=== PATIENT | female | born 1990 | race Caucasian/White ===

== ENCOUNTER 2017-09-20 17:09 | Emergency (ER) | payer BC ==
[2017-09-20 17:17] VITALS: BP 121/90
[2017-09-20] MEDS ORDERED: Ondansetron 4 MG/2 ML SDV IVPUSH ONE ×2 (17:22→18:18)
[2017-09-20] MEDS: Sodium Chloride 0.9% 10 ML Syringe FLUSH PRN ×2 (17:25→19:50)
--- NOTE | 2017-09-20 17:41 | EDM.PDOC ---
ED HPI GENERAL MEDICAL PROBLEM - General Chief Complaint: Abdominal Pain Stated Complaint: ABDOMINAL PAIN Time Seen by Provider: 09/20/17 17:15 Source of Information: Reports: Patient History Limitations: Reports: No Limitations - History of Present Illness INITIAL COMMENTS - FREE TEXT/NARRATIVE: 27-year-old female presents for evaluation and treatment of epigastric pain, nausea and vomiting. Patient reports that symptoms started today. She has had 3 episodes of vomiting which is producing green bile-like substance. No blood in her emesis. Patient reports that she has episodic severe stabbing pain in the epigastric Region. No radiation into her back. No fevers or diarrhea. No chest pain or shortness of breath. She reports decreased appetite and states that she can't keep anything down. She tried 2 doses of Zofran this morning but did not give any relief. Previous abdominal surgeries including a flap cholecystectomy August 2016. This was complicated with a retained stone in the ducts. She was sent to [facility] for an MRCP on August 25. She subsequently developed gallstone pancreatitis due to this retained stone. She still has her appendix. patient reports a chance of . Onset: Today Location: Reports: Abdomen Middle Abdomen Pain Score (Numeric/FACES): 8 - Related Data Allergies Allergy/AdvReac Type Severity Reaction Status Date / Time No Known Allergies Allergy Verified 09/20/17 17:17 Home Meds: Home Meds . [No Known Home Meds] 09/20/17 [History] Past Medical History - Past Health History Medical/Surgical History: Denies Medical/Surgical History HEENT History: Reports: Other (See Below) Other HEENT History: tonsillectomy - Infectious Disease History Infectious Disease History: Reports: Chicken Pox, Shingles - Past Surgical History HEENT Surgical History: Reports: Tonsillectomy GI Surgical History: Reports: Cholecystectomy Social & Family History - Family History Family Medical History: Noncontributory - Tobacco Use Smoking Status *Q: Never Smoker Second Hand Smoke Exposure: No - Caffeine Use Caffeine Use: Reports: None Other Caffeine Use: rarely - Recreational Drug Use Recreational Drug Use: No ED ROS GENERAL - Review of Systems Review Of Systems: See Below Constitutional: Reports: Chills, Malaise, Decreased Appetite. Denies: Fever Respiratory: Denies: Shortness of Breath Cardiovascular: Denies: Chest Pain GI/Abdominal: Reports: Abdominal Pain (epigastric), Nausea, Vomiting. Denies: Diarrhea, Hematemesis ED EXAM, GI/ABD - Physical Exam Exam: See Below Exam Limited By: No Limitations General Appearance: Alert, WD/WN, Moderate Distress, Thin Ears: Normal External Exam Nose: Normal Inspection Throat/Mouth: Normal Inspection Respiratory/Chest: No Respiratory Distress, Lungs Clear, Normal Breath Sounds Cardiovascular: Normal Peripheral Pulses, Regular Rate, Rhythm, No Murmur GI/Abdominal Exam: Soft, Tender (epigastric), Abnormal Bowel Sounds (hyperactive ), Other (no pain at [place] point). No: Rebound Neurological: Alert, Oriented, Normal Cognition Psychiatric: Normal Affect, Normal Mood Skin Exam: Warm, Dry, Normal Color Course - Vital Signs Last Recorded V/S: Last Vital Signs Temp 36.2 C 09/20/17 17:14 Pulse 113 H 09/20/17 17:14 Resp 19 09/20/17 17:14 BP 121/90 09/20/17 17:14 Pulse Ox 97 09/20/17 17:14 - Orders/Labs/Meds Orders: Active Orders 24 hr Category Date Time Status Peripheral IV Care [RC] . DIRECTED Care 09/20/17 17:22 Active Abdomen 2V AP Flat Upright [CR] Stat Exams 09/20/17 17:32 Ordered Abdomen Pelvis w Cont [CT] Stat Exams 09/20/17 18:36 Ordered Peripheral IV Insertion Adult [OM.PC] Routine Oth 09/20/17 17:22 Ordered Labs: Laboratory Tests 09/20/17 09/20/17 09/20/17 Range/Units 17:20 17:20 17:20 WBC 12.82 H (3.98-10.04) K/mm3 RBC 5.34 H (3.98-5.22) M/mm3 Hgb 15.5 (11.2-15.7) gm/L Hct 46.0 H (34.1-44.9) % MCV 86.1 (79.4-94.8) fl MCH 29.0 (25.6-32.2) pg MCHC 33.7 (32.2-35.5) g/dl RDW Std Deviation 40.7 (36.4-46.3) fL Plt Count 262 (182-369) K/mm3 MPV 12.4 H (9.4-12.3) fl Neutrophils % (Manual) 84 H (40-60) % Band Neutrophils % 1 (0-10) % Lymphocytes % (Manual) 8 L (20-40) % Atypical Lymphs % 0 % Monocytes % (Manual) 6 (2-10) % Eosinophils % (Manual) 1 (0.7-5.8) % Basophils % (Manual) 0 L (0.1-1.2) Platelet Estimate Adequate Plt Morphology Comment Normal Anisocytosis 1+ slight RBC Morph Comment Not Reportable Sodium 139 (136-145) mEq/L Potassium 3.7 (3.5-5.1) mEq/L Chloride 103 (98-107) mEq/L Carbon Dioxide 23 (21-32) mEq/L Anion Gap 16.7 H (5-15) BUN 21 H (7-18) mg/dL Creatinine 0.8 (0.55-1.02) mg/dL Est Cr Clr Drug Dosing 107.50 mL/min Estimated GFR (MDRD) > 60 (>60) mL/min BUN/Creatinine Ratio 26.3 H (14-18) Glucose 112 H (74-106) mg/dL Calcium 9.4 (8.5-10.1) mg/dL Total Bilirubin 1.2 H (0.2-1.0) mg/dL AST 23 (15-37) U/L ALT 28 (14-59) U/L Alkaline Phosphatase 123 H (46-116) U/L C-Reactive Protein 1.4 H* (<1.0) mg/dL Total Protein 8.7 H (6.4-8.2) g/dl Albumin 4.4 (3.4-5.0) g/dl Globulin 4.3 gm/dL Albumin/Globulin Ratio 1.0 (1-2) Lipase 125 (73-393) U/L HCG, Qual Negative (NEGATIVE) Urine Color (Yellow) Urine Appearance (Clear) Urine pH (5.0-8.0) Ur Specific [place] (1.005-1.030) Urine Protein (Negative) Urine Glucose (UA) (Negative) Urine Ketones (Negative) Urine Occult Blood (Negative) Urine Nitrite (Negative) Urine Bilirubin (Negative) Urine Urobilinogen (0.2-1.0) Ur Leukocyte Esterase (Negative) Urine RBC (0-5) /hpf Urine WBC (0-5) /hpf Ur Epithelial Cells (0-5) /hpf Urine Bacteria (FEW) /hpf Urine Mucus (FEW) /hpf 09/20/17 Range/Units 20:05 WBC (3.98-10.04) K/mm3 RBC (3.98-5.22) M/mm3 Hgb (11.2-15.7) gm/L Hct (34.1-44.9) % MCV (79.4-94.8) fl MCH (25.6-32.2) pg MCHC (32.2-35.5) g/dl RDW Std Deviation (36.4-46.3) fL Plt Count (182-369) K/mm3 MPV (9.4-12.3) fl Neutrophils % (Manual) (40-60) % Band Neutrophils % (0-10) % Lymphocytes % (Manual) (20-40) % Atypical Lymphs % % Monocytes % (Manual) (2-10) % Eosinophils % (Manual) (0.7-5.8) % Basophils % (Manual) (0.1-1.2) Platelet Estimate Plt Morphology Comment Anisocytosis RBC Morph Comment Sodium (136-145) mEq/L Potassium (3.5-5.1) mEq/L Chloride (98-107) mEq/L Carbon Dioxide (21-32) mEq/L Anion Gap (5-15) BUN (7-18) mg/dL Creatinine (0.55-1.02) mg/dL Est Cr Clr Drug Dosing mL/min Estimated GFR (MDRD) (>60) mL/min BUN/Creatinine Ratio (14-18) Glucose (74-106) mg/dL Calcium (8.5-10.1) mg/dL Total Bilirubin (0.2-1.0) mg/dL AST (15-37) U/L ALT (14-59) U/L Alkaline Phosphatase (46-116) U/L C-Reactive Protein (<1.0) mg/dL Total Protein (6.4-8.2) g/dl Albumin (3.4-5.0) g/dl Globulin gm/dL Albumin/Globulin Ratio (1-2) Lipase (73-393) U/L HCG, Qual (NEGATIVE) Urine Color Light yellow (Yellow) Urine Appearance Clear (Clear) Urine pH 5.5 (5.0-8.0) Ur Specific [place] 1.015 (1.005-1.030) Urine Protein Negative (Negative) Urine Glucose (UA) Negative (Negative) Urine Ketones 1+ H (Negative) Urine Occult Blood Negative (Negative) Urine Nitrite Negative (Negative) Urine Bilirubin Negative (Negative) Urine Urobilinogen 0.2 (0.2-1.0) Ur Leukocyte Esterase Negative (Negative) Urine RBC Not seen (0-5) /hpf Urine WBC 0-5 (0-5) /hpf Ur Epithelial Cells 10-20 H (0-5) /hpf Urine Bacteria Not seen (FEW) /hpf Urine Mucus Not seen (FEW) /hpf Meds: Medications Discontinued Medications Generic Name Dose Route Start Last Admin Trade Name Freq PRN Reason Stop Dose Admin Diatrizoate Meglum/Diatrizoate Sod 90 ml 09/20/17 19:38 09/20/17 19:50 Gastrografin 37% PO 09/20/17 19:39 90 ml ONETIME ONE Administration Sodium Chloride 1,000 mls @ 999 mls/hr 09/20/17 18:18 09/20/17 18:26 Normal Saline IV 09/20/17 19:18 999 mls/hr ONETIME ONE Administration Iopamidol 125 ml 09/20/17 19:38 09/20/17 19:50 Isovue-300 (61%) IVPUSH 09/20/17 19:39 125 ml ONETIME ONE Administration Ketorolac Tromethamine 30 mg 09/20/17 20:22 09/20/17 20:27 Toradol IVPUSH 09/20/17 20:23 30 mg ONETIME ONE Administration Metoclopramide HCl 5 mg 09/20/17 20:02 09/20/17 20:06 Reglan IVPUSH 09/20/17 20:03 5 mg ONETIME ONE Administration Ondansetron HCl 4 mg 09/20/17 17:22 09/20/17 17:25 Zofran IVPUSH 09/20/17 17:23 4 mg ONETIME ONE Administration Ondansetron HCl 4 mg 09/20/17 18:18 09/20/17 18:22 Zofran IVPUSH 09/20/17 18:19 4 mg ONETIME ONE Administration Sodium Chloride 10 ml 09/20/17 17:22 09/20/17 19:50 Saline Flush FLUSH 10 ml ASDIRECTED PRN Administration Keep Vein Open - Radiology Interpretation Free Text/Narrative:: flat and upright shows no air fluid lines, no free air CT of the abdomen and pelvis with IV and oral contrast impression per Vrad : No acute intra-abdominal process - Re-Assessments/Exams Free Text/Narrative Re-Assessment/Exam: 09/20/17 18:36 I reviewed the labs from the x-ray with the patient. Will obtain a CT of the abdomen and pelvis to rule out something like a diverticulitis and appendicitis. 09/20/17 20:[address] results with the patient. She now feels better after getting the Toradol. I do feel this is likely a viral gastroenteritis. I will discharge her home at this time. She has Zofran at home that she can use. Instructed to return the ER for symptoms change or worsen. Follow-up with family medicine later next week if her symptoms have not improved. Departure - Departure Time of Disposition: 20:51 Disposition: Home, Self-Care 01 Condition: Fair Clinical Impression: Gastroenteritis - Discharge Information Instructions: Viral Gastroenteritis, Adult Referrals: PCP,None [Primary Care Provider] - Sandra Michaud NP [ED Midlevel Provider] - Forms: ED Department Discharge Additional Instructions: Continue with your Zofran as needed for nausea. Recommended starting a probiotic. These are available counter. Clear fluids and a bland diet as tolerated. May advance to a more normal diet as tolerated. expect your symptoms to last 3-5 days. If they persist beyond 5 days follow-up with your primary care provider. Please return to the ER if your symptoms change or worsen. - My Orders Last 24 Hours: My Active Orders 09/20/17 17:22 Peripheral IV Care [RC] . DIRECTED Peripheral IV Insertion Adult [OM.PC] Routine 09/20/17 17:32 Abdomen 2V AP Flat Upright [CR] Stat 09/20/17 18:36 Abdomen Pelvis w Cont [CT] Stat - Assessment/Plan Last 24 Hours: My Active Orders 09/20/17 17:22 Peripheral IV Care [RC] . DIRECTED Peripheral IV Insertion Adult [OM.PC] Routine 09/20/17 17:32 Abdomen 2V AP Flat Upright [CR] Stat 09/20/17 18:36 Abdomen Pelvis w Cont [CT] Stat
[2017-09-20] MEDS ORDERED: Sodium Chloride 0.9% 1,000 ML IV ONE (18:18)
[2017-09-20] MEDS ORDERED: Iopamidol 612 MG/ML 150 ML Bottle IVPUSH ONE (19:38)
[2017-09-20] MEDS ORDERED: Diatrizoate Meglumine/Diatrizoate Sodium 37% 120 ML Bottle PO ONE (19:38)
[2017-09-20] MEDS ORDERED: Metoclopramide 10 MG/2 ML SDV IVPUSH ONE (20:02)
[2017-09-20] MEDS ORDERED: Ketorolac 30 MG/ML SDV IVPUSH ONE (20:22)
--- NOTE | 2017-09-21 15:44 | CR ---
Abdomen: Supine and upright views of the abdomen were obtained. Comparison: Prior abdominal x-ray of 09/05/16. Bowel gas pattern appears normal. Surgical clips are seen from prior cholecystectomy. No abnormal calcifications or soft tissue abnormality is seen. No free air is seen. Impression: 1. No abnormality is seen on two-view abdominal x-ray. Diagnostic code #1
--- NOTE | 2017-09-21 15:44 | CT ---
CT abdomen and pelvis Technique: Multiple axial sections were obtained from above the dome of the diaphragm inferiorly through the pubic symphysis. Intravenous and oral contrast was utilized. Delayed images were also obtained through the bladder. Comparison: No prior CT exam is available of the abdomen and pelvis, previous abdominal x-ray performed earlier from same date is available (6:00 PM). Findings: Visualized lung bases show nothing acute. Liver shows no focal parenchymal abnormality. Spleen appears within normal limits. Adrenal glands show no nodule. Pancreas is within normal limits. Kidneys show symmetric contrast enhancement without hydronephrosis or mass. Surgical clips are seen from prior cholecystectomy. Aorta shows no aneurysmal dilatation. No retroperitoneal adenopathy or mesenteric abnormalities are seen. No pelvic mass or adenopathy is seen. No free fluid or inflammatory change is seen. Appendix felt to be seen and appears normal. No free fluid or inflammatory change is seen. Delayed images show contrast within the distal ureters and within the bladder. Bone window settings were reviewed which appear within normal limits for the patient's age. Impression: 1. Nothing acute is seen on CT study of the abdomen and pelvis. Diagnostic code #1 Agree with preliminary report issued by [employer] ([employer] preliminary report dictated on 09/20/17, 9:18 PM Central Time)
== END 2017-09-20 20:56 | disposition home or self-care (01) ==
LOC: JD.ED 17:09
DX: K52.9 Noninfective gastroenteritis and colitis, unspecified (principal)
CPT/HCPCS: 36415; 74019; 74177; 80053; 81001; 83690; 84703; 85025; 86140; 96361; 96374; 96375; 96376; 99285; J1885; J2405; J2765; J7040; J7050; Q9963; Q9967; 99284

== ENCOUNTER 2018-11-04 03:59 | Inpatient (IN) | payer BC ==
[2018-11-04] MEDS ORDERED: Misoprostol 25 MCG (1/4 of 100 MCG) Tab ONE (19:34)
[2018-11-04] MEDS ORDERED: Ondansetron 4 MG/2 ML SDV IVPUSH PRN (19:47)
[2018-11-04] MEDS ORDERED: Misoprostol 100 MCG Tab VAG PRN (19:47)
[2018-11-04] MEDS ORDERED: Nalbuphine 20 MG/ML 1 ML Syringe IVPUSH PRN (19:47)
[2018-11-04] MEDS ORDERED: Sodium Chloride 0.9% 10 ML Syringe FLUSH PRN (19:47)
--- NOTE | 2018-11-04 19:50 | PCM.LDHP ---
L&D History of Present Illness - General Date of Service: 11/04/18 Admit Problem/Dx: Patient Status Order with Admit Dx/Problem 11/04/18 19:47 Patient Status [ADT] Routine Admission Diagnosis/Problem Admission Diagnosis/Problem Gestational hypertension Source of Information: Patient History Limitations: Reports: No Limitations - History of Present Illness Introduction:: Patient is a 28 y/o at 37 0/7 wks. Last week seen for triage on L&D for complaints of headaches and feeling unwell. Noted to have several mild range BP 's. Given diagnosis of gestational HTN and asked to present for IOL at 37 weeks. Doing well since I last saw her. No complaints of headaches. No vision changes. Has been off of work - Related Data Allergies/Adverse Reactions: Allergies Allergy/AdvReac Type Severity Reaction Status Date / Time No Known Allergies Allergy Verified 11/04/18 23:36 Home Medications: Home Meds Ferrous Sulfate [Iron] 325 mg PO DAILY 10/20/18 [History] Pnv No.122/Iron/Folic Acid [ Multi Tablet] 1 each PO DAILY 10/20/18 [ History] Past Medical History [employer] History: Reports: : 1 Para: 0 - Infectious Disease History Infectious Disease History: Reports: Chicken Pox, Shingles - Past Surgical History HEENT Surgical History: Reports: Oral Surgery (tooth extraction), Tonsillectomy GI Surgical History: Reports: Cholecystectomy Social & Family History - Family History Family Medical History: Noncontributory - Tobacco Use Smoking Status *Q: Never Smoker - Caffeine Use Caffeine Use: Reports: None Other Caffeine Use: rarely - Alcohol Use Alcohol Use History: No - Recreational Drug Use Recreational Drug Use: No H&P Review of Systems - Review of Systems: Review Of Systems: See Below General: Reports: No Symptoms Pulmonary: Reports: No Symptoms Cardiovascular: Reports: No Symptoms Gastrointestinal: Reports: No Symptoms Genitourinary: Reports: No Symptoms Musculoskeletal: Reports: No Symptoms Psychiatric: Reports: No Symptoms Neurological: Reports: No Symptoms L&D Exam - Exam Exam: See Below - OB Specific Contraction Intensity: Irritability Movement: Active Heart Tones: Present Heart Tones per Min: 130 Heart Rate (FHR) Variability: Moderate (6-25 bmp) Presentation: Vertex - Zhu Score Zhu Score Cervix Position: Posterior Zhu Score Consistency: Medium Zhu Score Effacement: 31-50% Zhu Score Dilation: 1-2 cm Zhu Score 's Station: -2 Zhu Score Total: 4 - Exam General: Alert, Oriented, Cooperative Lungs: Clear to Auscultation, Normal Respiratory Effort Cardiovascular: Regular Rate, Regular Rhythm GI/Abdominal Exam: Soft, Non-Tender Genitourinary: Normal external exam Extremities: Normal Inspection Skin: Warm, Dry, Intact - Patient Data Result Diagrams: 11/04/18 20:00 11/04/18 20:00 - Problem List (1) 37 weeks gestation of SNOMED Code(s): 52011657 ICD Code: Z3A.37 - 37 WEEKS GESTATION OF Status: Acute Current Visit: Yes (2) Gestational hypertension SNOMED Code(s): 641711128 ICD Code: O13.9 - GESTATIONAL HTN W/O SIGNIFICANT PROTEINURIA, UNSP TRIMESTER Status: Acute Current Visit: Yes Qualifiers: Trimester: third trimester Qualified Code(s): O13.3 - Gestational [ -induced] hypertension without significant proteinuria, third trimester (3) GBS (group B Streptococcus carrier), +RV culture, currently SNOMED Code(s): 5707260762173, 632444766, 6098428805358 ICD Code: O99.820 - STREPTOCOCCUS B CARRIER STATE COMPLICATING Status: Acute Current Visit: Yes Problem List Initiated/Reviewed/Updated: Yes Orders Last 24hrs: Active Orders 24 hr Category Date Time Status Patient Status [ADT] Routine ADT 11/04/18 19:47 Ordered Communication Order [RC] ASDIRECTED Care 11/04/18 19:47 Ordered Communication Order [RC] ASDIRECTED Care 11/04/18 19:47 Ordered Communication Order [RC] ASDIRECTED Care 11/04/18 19:47 Ordered Heart Tones [RC] ASDIRECTED Care 11/04/18 19:47 Ordered Monitoring [RC] INTERMITTENT Care 11/04/18 19:47 Ordered Non Stress Test [RC] PER UNIT ROUTINE Care 11/04/18 19:47 Ordered Notify Provider [RC] ASDIRECTED Care 11/04/18 19:47 Ordered Notify Provider [RC] PRN Care 11/04/18 19:47 Ordered Peripheral IV Care [RC] . DIRECTED Care 11/04/18 19:47 Ordered Up ad Clair [RC] ASDIRECTED Care 11/04/18 19:47 Ordered Vaginal Exam [RC] ASDIRECTED Care 11/04/18 19:47 Ordered Vital Signs [RC] ASDIRECTED Care 11/04/18 19:47 Ordered Regular Diet [DIET] Diet 11/04/18 Dinner Ordered ALANINE AMINOTRANSFERASE,ALT [CHEM] Routine Lab 11/04/18 19:47 Ordered ASPARTATE AMNIOTRANSFERASE,AST [CHEM] Routine Lab 11/04/18 19:47 Ordered CBC W/O DIFF,HEMOGRAM [HEME] Routine Lab 11/04/18 19:47 Ordered CREATININE W/GFR [CHEM] Routine Lab 11/04/18 19:47 Ordered RAPID PLASMA REAGIN,RPR [CHEM] Routine Lab 11/04/18 19:47 Ordered TYPE AND SCREEN [BBK] Routine Lab 11/04/18 19:47 Ordered Lactated Ringers [Ringers, Lactated] 1,000 ml Med 11/04/18 20:00 Ordered IV ASDIRECTED Nalbuphine [Nubain] Med 11/04/18 19:47 Ordered 10 mg IVPUSH Q2H PRN Ondansetron [Zofran] Med 11/04/18 19:47 Ordered 4 mg IVPUSH Q4H PRN Oxytocin/Lactated Ringers [Pitocin in LR 10 Units/1,000 Med 11/04/18 20:00 Ordered ML] 10 unit in 1,000 ml IV .CONTINUOUS Oxytocin/Lactated Ringers [Pitocin in LR 10 Units/1,000 Med 11/04/18 20:00 Ordered ML] 10 unit in 1,000 ml IV TITRATE Penicillin G Potassium [Pfizerpen] 2.5 millunits Med 11/04/18 20:00 Ordered Sodium Chloride 0.9% [Normal Saline] 100 ml IV Q4H Penicillin G Potassium [Pfizerpen] 5 millunits Med 11/04/18 20:00 Ordered Sodium Chloride 0.9% [Normal Saline] 100 ml IV ONETIME Sodium Chloride 0.9% [Saline Flush] Med 11/04/18 19:47 Ordered 10 ml FLUSH ASDIRECTED PRN miSOPROStol [Cytotec] Med 11/04/18 19:47 Ordered 25 mcg VAG Q4H PRN Electronic Heart Tones Ext w TOCO [WOMSER] Oth 11/04/18 19:47 Ordered Routine Electronic Heart Tones Internal [WOMSER] Per Unit Oth 11/04/18 19:47 Ordered Routine Peripheral IV Insertion Adult [OM.PC] Routine Oth 11/04/18 19:47 Ordered Resuscitation Status Routine Resus Stat 11/04/18 19:47 Ordered Assessment/Plan Comment:: 28 y/o at 37 1/7 wks presents for IOL for previously established diagnosis of gestational HTN * Labs including preeclampsia panel * Cytotec and galindo bulb to start IOL. Will adjust to Pitocin and AROM when able * GBS positive, will start PCN when more active * Pain management per patient preference * Anticipate
[2018-11-04] MEDS ORDERED: Penicillin G Potassium 5 MILLUNITS in Sodium Chloride 0.9% 100 ML IV SCH (20:00)
[2018-11-04] MEDS ORDERED: Oxytocin/Lactated Ringers 10 UNIT/1,000 ML BAG IV SCH ×2 (20:00)
[2018-11-04] MEDS ORDERED: Misoprostol 25 MCG (1/4 of 100 MCG) Tab PO PRN (21:00)
[2018-11-05] MEDS ORDERED: Penicillin G Potassium 2.5 MILLUNITS in Sodium Chloride 0.9% 100 ML IV SCH ×2
[2018-11-05] MEDS: Lactated Ringers 1,000 ML IV SCH ×6 (01:22→16:26)
[2018-11-05] MEDS ORDERED: fentaNYL 100 MCG/2 ML SDV ONE (01:29)
[2018-11-05] MEDS ORDERED: ePHEDrine 50 MG/ML SDV IVPUSH PRN (01:44)
[2018-11-05] MEDS ORDERED: diphenhydrAMINE 50 MG/ML SDV IVPUSH PRN (01:44)
[2018-11-05] MEDS: fentaNYL 100 MCG/2 ML SDV EPIDUR PRN ×2 (02:11→21:59)
[2018-11-05] MEDS: fentaNYL/Bupivacaine-NS 2 MCG/ML-0.125%/PF 100 ML Bag EPIDUR PRN ×2 (02:11→18:32)
--- NOTE | 2018-11-05 02:19 | PCM.PREANE ---
Preanesthetic Assessment - Anesthesia/Transfusion/Family Hx Anesthesia History: Prior Anesthesia Without Reaction Family History of Anesthesia Reaction: No Transfusion History: No Prior Transfusion(s) Type of Transfusion Reactions: Reports: Unknown - Review of Systems General: Fatigue Pulmonary: No Symptoms Cardiovascular: No Symptoms Gastrointestinal: Abdominal Pain (labor) Neurological: No Symptoms Other: Reports: None - Physical Assessment Pulse: 108 O2 Sat by Pulse Oximetry: 100 Respiratory Rate: 16 Blood Pressure: 132/81 Temperature: 36.4 C Vital Signs: Last Vital Signs Temp 36.4 C 11/04/18 19:47 Pulse 108 H 11/04/18 19:47 Resp 16 11/04/18 19:47 BP 132/81 11/04/18 19:47 Pulse Ox 100 11/04/18 19:47 Height: 1.7 m Weight: 95.617 kg ASA Class: 2 Mental Status: Alert & Oriented x3 Airway Class: Mallampati = 1 Dentition: Reports: Normal Dentition Thyro-Mental Finger Breadths: 3 Mouth Opening Finger Breadths: 3 ROM/Head Extension: Full Lungs: Clear to Auscultation, Normal Respiratory Effort Cardiovascular: Regular Rate, Regular Rhythm - Lab Values: Laboratory Last Values WBC 12.25 K/mm3 (3.98-10.04) H 11/04/18 20:00 RBC 3.74 M/mm3 (3.98-5.22) L 11/04/18 20:00 Hgb 11.1 gm/L (11.2-15.7) L 11/04/18 20:00 Hct 32.6 % (34.1-44.9) L 11/04/18 20:00 MCV 87.2 fl (79.4-94.8) 11/04/18 20:00 MCH 29.7 pg (25.6-32.2) 11/04/18 20:00 MCHC 34.0 g/dl (32.2-35.5) 11/04/18 20:00 RDW Std Deviation 40.0 fL (36.4-46.3) 11/04/18 20:00 Plt Count 175 K/mm3 (182-369) L 11/04/18 20:00 MPV 12.1 fl (9.4-12.3) 11/04/18 20:00 Creatinine 0.8 mg/dL (0.55-1.02) 11/04/18 20:00 Est Cr Clr Drug Dosing TNP 11/04/18 20:00 Estimated GFR (MDRD) > 60 mL/min (>60) 11/04/18 20:00 AST 18 U/L (15-37) 11/04/18 20:00 ALT 18 U/L (14-59) 11/04/18 20:00 Ur Random Creatinine 121.4 mg/dL (30.0-125.0) 11/04/18 20:05 U Random Total Protein 16.5 mg/dL (0.0-11.8) H 11/04/18 20:05 Protein/Creatinin Ratio 135.9 mg/g (0-149) 11/04/18 20:05 RPR Non-reactive (NONREACTIVE) 11/04/18 20:00 Blood Type A POSITIVE 11/04/18 20:00 - Allergies Allergies/Adverse Reactions: Allergies Allergy/AdvReac Type Severity Reaction Status Date / Time No Known Allergies Allergy Verified 11/04/18 23:36 - Anesthesia Plan Pre-Op Medication Ordered: None - Acknowledgements Anesthesia Type Planned: Epidural Pt an Appropriate Candidate for the Planned Anesthesia: Yes Alternatives and Risks of Anesthesia Discussed w Pt/Guardian: Yes Pt/Guardian Understands and Agrees with Anesthesia Plan: Yes PreAnesthesia Questionnaire - Past Health History Medical/Surgical History: Denies Medical/Surgical History HEENT History: Reports: Other (See Below) Other HEENT History: tonsillectomy 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: - Infectious Disease History Infectious Disease History: Reports: Chicken Pox, Shingles - Past Surgical History HEENT Surgical History: Reports: Tonsillectomy GI Surgical History: Reports: Cholecystectomy - SUBSTANCE USE Smoking Status *Q: Never Smoker Tobacco Use Within Last Twelve Months: No Second Hand Smoke Exposure: No Days Per Week of Alcohol Use: 0 Number of Drinks Per Day: 0 Total Drinks Per Week: 0 Recreational Drug Use History: No - HOME MEDS Home Medications: Home Meds Ferrous Sulfate [Iron] 325 mg PO DAILY 10/20/18 [History] Pnv No.122/Iron/Folic Acid [ Multi Tablet] 1 each PO DAILY 10/20/18 [ History] - CURRENT (IN HOUSE) MEDS Current Meds: Current Medications Diphenhydramine HCl (Benadryl) 25 mg IVPUSH Q6H PRN PRN Reason: Itching Ephedrine Sulfate (Ephedrine Sulfate) 5 mg IVPUSH ASDIRECTED PRN PRN Reason: HYPOTENTSION Fentanyl (Sublimaze) 100 mcg EPIDUR Q3H PRN PRN Reason: Pain Last Admin: 11/05/18 02:11 Dose: 100 mcg Fentanyl/Bupivacaine HCl (Thgfmbil-Fdkex-Hy 2 Mcg/Ml-0.125%) 100 ml EPIDUR ASDIRECTED PRN PRN Reason: Pain Last Admin: 11/05/18 02:11 Dose: 100 ml Lactated Ringer's (Ringers, Lactated) 1,000 mls @ 40 mls/hr IV ASDIRECTED MIHIR Last Admin: 11/05/18 01:52 Dose: 999 mls/hr Oxytocin/Lactated Ringer's (Pitocin In Lr 10 Units/1,000 Ml) 10 unit in 1,000 mls @ 12 mls/hr IV TITRATE MIHIR; Protocol Oxytocin/Lactated Ringer's (Pitocin In Lr 10 Units/1,000 Ml) 10 unit in 1,000 mls @ 500 mls/hr IV .CONTINUOUS MIHIR Penicillin G Potassium 5 (millunits/ Sodium Chloride) 100 mls @ 55 mls/hr IV ONETIME MIHIR Penicillin G Potassium 2.5 (millunits/ Sodium Chloride) 100 mls @ 55 mls/hr IV Q4H MIHIR Nalbuphine HCl (Nubain) 10 mg IVPUSH Q2H PRN PRN Reason: pain Ondansetron HCl (Zofran) 4 mg IVPUSH Q4H PRN PRN Reason: Nausea/Vomiting Sodium Chloride (Saline Flush) 10 ml FLUSH ASDIRECTED PRN PRN Reason: Keep Vein Open Discontinued Medications Fentanyl (Sublimaze) Confirm Administered Dose 100 mcg .ROUTE .STK-MED ONE Stop: 11/05/18 01:30 Misoprostol (Cytotec) Confirm Administered Dose 25 mcg .ROUTE .STK-MED ONE Stop: 11/04/18 19:35 Last Admin: 11/04/18 19:40 Dose: 25 mcg Misoprostol (Cytotec) 25 mcg VAG Q4H PRN PRN Reason: cervical ripening Misoprostol (Cytotec) 25 mcg PO Q4H PRN PRN Reason: CERVICAL RIPENING
[2018-11-05] MEDS ORDERED: Penicillin G Potassium 5 MILLUNITS in Sodium Chloride 0.9% 100 ML IV ONE (02:30)
[2018-11-05] MEDS: Penicillin G Potassium 2.5 MILLUNITS in Sodium Chloride 0.9% 100 ML IV SCH ×5 (06:30→23:31)
--- NOTE | 2018-11-05 07:04 | PCM.PNLD ---
Labor Progress Note - VS & Meds Vital Signs: Last Vital Signs Temp 36.4 C 11/05/18 02:19 Pulse 108 H 11/05/18 02:19 Resp 16 11/05/18 02:19 BP 132/81 11/05/18 02:19 Pulse Ox 100 11/05/18 02:19 Active Medications: Current Medications Diphenhydramine HCl (Benadryl) 25 mg IVPUSH Q6H PRN PRN Reason: Itching Ephedrine Sulfate (Ephedrine Sulfate) 5 mg IVPUSH ASDIRECTED PRN PRN Reason: HYPOTENTSION Fentanyl (Sublimaze) 100 mcg EPIDUR Q3H PRN PRN Reason: Pain Last Admin: 11/05/18 02:11 Dose: 100 mcg Fentanyl/Bupivacaine HCl (Wmlbmzlj-Kreal-Et 2 Mcg/Ml-0.125%) 100 ml EPIDUR ASDIRECTED PRN PRN Reason: Pain Last Admin: 11/05/18 02:11 Dose: 100 ml Lactated Ringer's (Ringers, Lactated) 1,000 mls @ 40 mls/hr IV ASDIRECTED MIHIR Last Admin: 11/05/18 04:29 Dose: 125 mls/hr Oxytocin/Lactated Ringer's (Pitocin In Lr 10 Units/1,000 Ml) 10 unit in 1,000 mls @ 12 mls/hr IV TITRATE MIHIR; Protocol Last Titration: 11/05/18 06:35 Dose: 10 munits/min, 60 mls/hr Oxytocin/Lactated Ringer's (Pitocin In Lr 10 Units/1,000 Ml) 10 unit in 1,000 mls @ 500 mls/hr IV .CONTINUOUS MIHIR Penicillin G Potassium 2.5 (millunits/ Sodium Chloride) 100 mls @ 55 mls/hr IV Q4H MIHIR Last Admin: 11/05/18 06:30 Dose: 55 mls/hr Nalbuphine HCl (Nubain) 10 mg IVPUSH Q2H PRN PRN Reason: pain Ondansetron HCl (Zofran) 4 mg IVPUSH Q4H PRN PRN Reason: Nausea/Vomiting Sodium Chloride (Saline Flush) 10 ml FLUSH ASDIRECTED PRN PRN Reason: Keep Vein Open Discontinued Medications Fentanyl (Sublimaze) Confirm Administered Dose 100 mcg .ROUTE .STK-MED ONE Stop: 11/05/18 01:30 Last Admin: 11/05/18 03:34 Dose: Not Given Penicillin G Potassium 5 (millunits/ Sodium Chloride) 100 mls @ 55 mls/hr IV ONETIME ONE Stop: 11/05/18 04:19 Last Admin: 11/05/18 02:38 Dose: 55 mls/hr Misoprostol (Cytotec) Confirm Administered Dose 25 mcg .ROUTE .STK-MED ONE Stop: 11/04/18 19:35 Last Admin: 11/04/18 19:40 Dose: 25 mcg Misoprostol (Cytotec) 25 mcg VAG Q4H PRN PRN Reason: cervical ripening Misoprostol (Cytotec) 25 mcg PO Q4H PRN PRN Reason: CERVICAL RIPENING - Uterine Contractions Uterine Monitoring Mode: External [place] Contraction Intensity: Irritability - Monitoring Monitor Mode: External Ultrasound Heart Rate (FHR) Baseline: 140 Heart Rate (FHR) Variability: Moderate (6-25 bmp) Accelerations: Present, 15x15 Decelerations: Variable Strip Review: Category I - Vaginal Exam Dilation (cm): 3 Effacement (Percent): 75 Station: -2 Cervical Position: Midposition - Labor Progress (Free Text) Labor Progress: Patient only received 1st dose of cytotec at 1930 and then with strong contractions. Cytotec out at 0045. Received epidural around this time. Pitocin then started around 0330 along with PCN. Still with some difficulty achieving adequate contraction pattern. Would prefer to not AROM yet, however, can do this if difficulty in having normal contraction pattern and titrating pitocin
--- NOTE | 2018-11-05 12:13 | PCM.PNLD ---
Labor Progress Note - VS & Meds Vital Signs: Last Vital Signs Temp 36.4 C 11/05/18 02:19 Pulse 108 H 11/05/18 02:19 Resp 16 11/05/18 02:19 BP 132/81 11/05/18 02:19 Pulse Ox 100 11/05/18 02:19 Active Medications: Current Medications Diphenhydramine HCl (Benadryl) 25 mg IVPUSH Q6H PRN PRN Reason: Itching Ephedrine Sulfate (Ephedrine Sulfate) 5 mg IVPUSH ASDIRECTED PRN PRN Reason: HYPOTENTSION Fentanyl (Sublimaze) 100 mcg EPIDUR Q3H PRN PRN Reason: Pain Last Admin: 11/05/18 02:11 Dose: 100 mcg Fentanyl/Bupivacaine HCl (Arwstano-Pkdmu-Tr 2 Mcg/Ml-0.125%) 100 ml EPIDUR ASDIRECTED PRN PRN Reason: Pain Last Admin: 11/05/18 02:11 Dose: 100 ml Lactated Ringer's (Ringers, Lactated) 1,000 mls @ 40 mls/hr IV ASDIRECTED MIHIR Last Admin: 11/05/18 08:24 Dose: 125 mls/hr Oxytocin/Lactated Ringer's (Pitocin In Lr 10 Units/1,000 Ml) 10 unit in 1,000 mls @ 12 mls/hr IV TITRATE MIHIR; Protocol Last Titration: 11/05/18 11:15 Dose: 6 munits/min, 36 mls/hr Oxytocin/Lactated Ringer's (Pitocin In Lr 10 Units/1,000 Ml) 10 unit in 1,000 mls @ 500 mls/hr IV .CONTINUOUS MIHIR Penicillin G Potassium 2.5 (millunits/ Sodium Chloride) 100 mls @ 55 mls/hr IV Q4H MIHIR Last Admin: 11/05/18 10:33 Dose: 55 mls/hr Nalbuphine HCl (Nubain) 10 mg IVPUSH Q2H PRN PRN Reason: pain Ondansetron HCl (Zofran) 4 mg IVPUSH Q4H PRN PRN Reason: Nausea/Vomiting Sodium Chloride (Saline Flush) 10 ml FLUSH ASDIRECTED PRN PRN Reason: Keep Vein Open Discontinued Medications Fentanyl (Sublimaze) Confirm Administered Dose 100 mcg .ROUTE .STK-MED ONE Stop: 11/05/18 01:30 Last Admin: 11/05/18 03:34 Dose: Not Given Penicillin G Potassium 5 (millunits/ Sodium Chloride) 100 mls @ 55 mls/hr IV ONETIME ONE Stop: 11/05/18 04:19 Last Admin: 11/05/18 02:38 Dose: 55 mls/hr Misoprostol (Cytotec) Confirm Administered Dose 25 mcg .ROUTE .STK-MED ONE Stop: 11/04/18 19:35 Last Admin: 11/04/18 19:40 Dose: 25 mcg Misoprostol (Cytotec) 25 mcg VAG Q4H PRN PRN Reason: cervical ripening Misoprostol (Cytotec) 25 mcg PO Q4H PRN PRN Reason: CERVICAL RIPENING - Uterine Contractions Uterine Monitoring Mode: IUPC Contraction Intensity: Strong - Monitoring Monitor Mode: External Ultrasound Heart Rate (FHR) Baseline: 135 Heart Rate (FHR) Variability: Moderate (6-25 bmp) Accelerations: Present, 15x15 Decelerations: Variable Strip Review: Category II - Vaginal Exam Dilation (cm): 3 Effacement (Percent): 80 Station: -1 Cervical Position: Anterior - Labor Progress (Free Text) Labor Progress: Patient with an adequate contraction pattern on 6 of pitocin. SVE shows good effacement since last exam. Dilation about the same. Will continue present management. Reassess in a few hours
--- NOTE | 2018-11-05 16:32 | PCM.PNLD ---
Labor Progress Note - VS & Meds Vital Signs: Last Vital Signs Temp 36.4 C 11/05/18 02:19 Pulse 108 H 11/05/18 02:19 Resp 16 11/05/18 02:19 BP 132/81 11/05/18 02:19 Pulse Ox 100 11/05/18 02:19 Active Medications: Current Medications Diphenhydramine HCl (Benadryl) 25 mg IVPUSH Q6H PRN PRN Reason: Itching Ephedrine Sulfate (Ephedrine Sulfate) 5 mg IVPUSH ASDIRECTED PRN PRN Reason: HYPOTENTSION Fentanyl (Sublimaze) 100 mcg EPIDUR Q3H PRN PRN Reason: Pain Last Admin: 11/05/18 02:11 Dose: 100 mcg Fentanyl/Bupivacaine HCl (Hvmngpsh-Bzezu-Gk 2 Mcg/Ml-0.125%) 100 ml EPIDUR ASDIRECTED PRN PRN Reason: Pain Last Admin: 11/05/18 02:11 Dose: 100 ml Lactated Ringer's (Ringers, Lactated) 1,000 mls @ 40 mls/hr IV ASDIRECTED MIHIR Last Admin: 11/05/18 16:26 Dose: 125 mls/hr Oxytocin/Lactated Ringer's (Pitocin In Lr 10 Units/1,000 Ml) 10 unit in 1,000 mls @ 12 mls/hr IV TITRATE MIHIR; Protocol Last Titration: 11/05/18 11:15 Dose: 6 munits/min, 36 mls/hr Oxytocin/Lactated Ringer's (Pitocin In Lr 10 Units/1,000 Ml) 10 unit in 1,000 mls @ 500 mls/hr IV .CONTINUOUS MIHIR Penicillin G Potassium 2.5 (millunits/ Sodium Chloride) 100 mls @ 55 mls/hr IV Q4H MIHIR Last Admin: 11/05/18 15:30 Dose: 55 mls/hr Nalbuphine HCl (Nubain) 10 mg IVPUSH Q2H PRN PRN Reason: pain Ondansetron HCl (Zofran) 4 mg IVPUSH Q4H PRN PRN Reason: Nausea/Vomiting Last Admin: 11/05/18 13:33 Dose: 4 mg Sodium Chloride (Saline Flush) 10 ml FLUSH ASDIRECTED PRN PRN Reason: Keep Vein Open Discontinued Medications Fentanyl (Sublimaze) Confirm Administered Dose 100 mcg .ROUTE .STK-MED ONE Stop: 11/05/18 01:30 Last Admin: 11/05/18 03:34 Dose: Not Given Penicillin G Potassium 5 (millunits/ Sodium Chloride) 100 mls @ 55 mls/hr IV ONETIME ONE Stop: 11/05/18 04:19 Last Admin: 11/05/18 02:38 Dose: 55 mls/hr Misoprostol (Cytotec) Confirm Administered Dose 25 mcg .ROUTE .STK-MED ONE Stop: 11/04/18 19:35 Last Admin: 11/04/18 19:40 Dose: 25 mcg Misoprostol (Cytotec) 25 mcg VAG Q4H PRN PRN Reason: cervical ripening Misoprostol (Cytotec) 25 mcg PO Q4H PRN PRN Reason: CERVICAL RIPENING - Uterine Contractions Uterine Monitoring Mode: IUPC Contraction Intensity: Strong - Monitoring Monitor Mode: External Ultrasound Heart Rate (FHR) Baseline: 135 Heart Rate (FHR) Variability: Moderate (6-25 bmp) Accelerations: Present, 15x15 Decelerations: None Strip Review: Category I - Labor Progress (Free Text) Labor Progress: Patient resting comfortably with epidural. Pitocin at 6. MVU's adequate. Last checked by myself at about 1215. Nursing exam around 1500 showed maybe slightly more dilation, 3-4 as compared to 3 cm. Reviewed prefer not to check right now. Will come back in a few hours and reassess then. Did discuss that can not call failure to progress at this time as has only been ruptured for about 7 hours. Initial stage of labor can be unpredictable. As long as and maternal status reassuring will continue present management. She agrees. Patsy Donaldson MD
--- NOTE | 2018-11-05 19:08 | PCM.PNLD ---
Labor Progress Note - VS & Meds Vital Signs: Last Vital Signs Temp 36.4 C 11/05/18 02:19 Pulse 108 H 11/05/18 02:19 Resp 16 11/05/18 02:19 BP 132/81 11/05/18 02:19 Pulse Ox 100 11/05/18 02:19 Active Medications: Current Medications Diphenhydramine HCl (Benadryl) 25 mg IVPUSH Q6H PRN PRN Reason: Itching Ephedrine Sulfate (Ephedrine Sulfate) 5 mg IVPUSH ASDIRECTED PRN PRN Reason: HYPOTENTSION Fentanyl (Sublimaze) 100 mcg EPIDUR Q3H PRN PRN Reason: Pain Last Admin: 11/05/18 02:11 Dose: 100 mcg Fentanyl/Bupivacaine HCl (Leoyteww-Vkfcs-Kj 2 Mcg/Ml-0.125%) 100 ml EPIDUR ASDIRECTED PRN PRN Reason: Pain Last Admin: 11/05/18 18:32 Dose: 100 ml Lactated Ringer's (Ringers, Lactated) 1,000 mls @ 40 mls/hr IV ASDIRECTED MIHIR Last Admin: 11/05/18 16:26 Dose: 125 mls/hr Oxytocin/Lactated Ringer's (Pitocin In Lr 10 Units/1,000 Ml) 10 unit in 1,000 mls @ 12 mls/hr IV TITRATE MIHIR; Protocol Last Titration: 11/05/18 11:15 Dose: 6 munits/min, 36 mls/hr Oxytocin/Lactated Ringer's (Pitocin In Lr 10 Units/1,000 Ml) 10 unit in 1,000 mls @ 500 mls/hr IV .CONTINUOUS MIHIR Penicillin G Potassium 2.5 (millunits/ Sodium Chloride) 100 mls @ 55 mls/hr IV Q4H MIHIR Last Admin: 11/05/18 15:30 Dose: 55 mls/hr Nalbuphine HCl (Nubain) 10 mg IVPUSH Q2H PRN PRN Reason: pain Ondansetron HCl (Zofran) 4 mg IVPUSH Q4H PRN PRN Reason: Nausea/Vomiting Last Admin: 11/05/18 13:33 Dose: 4 mg Sodium Chloride (Saline Flush) 10 ml FLUSH ASDIRECTED PRN PRN Reason: Keep Vein Open Discontinued Medications Fentanyl (Sublimaze) Confirm Administered Dose 100 mcg .ROUTE .STK-MED ONE Stop: 11/05/18 01:30 Last Admin: 11/05/18 03:34 Dose: Not Given Penicillin G Potassium 5 (millunits/ Sodium Chloride) 100 mls @ 55 mls/hr IV ONETIME ONE Stop: 11/05/18 04:19 Last Admin: 11/05/18 02:38 Dose: 55 mls/hr Misoprostol (Cytotec) Confirm Administered Dose 25 mcg .ROUTE .STK-MED ONE Stop: 11/04/18 19:35 Last Admin: 11/04/18 19:40 Dose: 25 mcg Misoprostol (Cytotec) 25 mcg VAG Q4H PRN PRN Reason: cervical ripening Misoprostol (Cytotec) 25 mcg PO Q4H PRN PRN Reason: CERVICAL RIPENING - Uterine Contractions Uterine Monitoring Mode: IUPC Contraction Intensity: Strong - Monitoring Monitor Mode: External Ultrasound Heart Rate (FHR) Baseline: 150 Heart Rate (FHR) Variability: Moderate (6-25 bmp) Accelerations: Present, 15x15 Decelerations: Variable - Vaginal Exam Dilation (cm): 4-5 Effacement (Percent): 90 Station: -1 Cervical Position: Anterior - Labor Progress (Free Text) Labor Progress: Doing well. Comfortable. IUPC shows adequate contractions. Has made good change in both effacement and dilation since my last check. Will continue present management
[2018-11-05] MEDS ORDERED: Bupivacaine 0.25% 10 ML SDV ONE (22:00)
[2018-11-06] MEDS: Lactated Ringers 1,000 ML IV SCH ×2 (00:09→05:22)
[2018-11-06] MEDS: fentaNYL/Bupivacaine-NS 2 MCG/ML-0.125%/PF 100 ML Bag EPIDUR PRN (00:53)
--- NOTE | 2018-11-06 04:28 | PCM.DEL ---
L & D Note - General Info Date of Service: 11/06/18 - Delivery Note Labor: Induced by ARM, Induced by Oxytocin Cervical Ripening Method: Balloon Device, Misoprostil Delivery Outcome: Livebirth Infant Delivery Method: Spontaneous Vaginal Delivery-Single Delivery Mode: Spontaneous Presentation: Left Occiput Anterior (HALEY) Nuchal Cord: None Anesthesia Type: Epidural Amniotic Fluid Description: Clear Episiotomy Type: None Laceration: 2nd Degree, Perineal Suture type: Vicryl Suture size: 2-0 Placenta: Intact, Spontaneous Cord: 3 Vessels Estimated Blood Loss: 200 [place]: Suctioned, Bulb Syringe, Stimulated, Warmed, [place] Used, Warmer Used Delivery Comments (Free Text/Narrative):: Patient found to be complete and began pushing. With maternal pushing effort head delivered from an HALEY presentation. With gentle downward traction the shoulders did not immediately deliver. Patient put in deeper Winifred and after about 20 more seconds the anterior and posterior shoulders did deliver. Cord clamped and cut. Baby taken to warmer for assessment. Cord segment obtained for cord gas. Cord blood obtained. Placenta allowed time to separate and expelled intact. Inspection of the perineum showed a 2nd degree laceration repaired with a 2-0 Vicryl in the typical fashion. AB.19 VB.33 - General Info Date of Service: 11/06/18 - Patient Data Vitals - Most Recent: Last Vital Signs Temp 36.4 C 11/05/18 02:19 Pulse 108 H 11/05/18 02:19 Resp 16 11/05/18 02:19 BP 132/81 11/05/18 02:19 Pulse Ox 100 11/05/18 02:19 Weight - Most Recent: 95.617 kg I&O - Last 24 Hours: - Problem List & Annotations (1) 37 weeks gestation of SNOMED Code(s): 99541968 Code(s): Z3A.37 - 37 WEEKS GESTATION OF Status: Acute Current Visit: Yes (2) Gestational hypertension SNOMED Code(s): 266264421 Code(s): O13.9 - GESTATIONAL HTN W/O SIGNIFICANT PROTEINURIA, UNSP TRIMESTER Status: Acute Current Visit: Yes Qualifiers: Trimester: third trimester Qualified Code(s): O13.3 - Gestational [ -induced] hypertension without significant proteinuria, third trimester (3) GBS (group B Streptococcus carrier), +RV culture, currently SNOMED Code(s): 8617071656785, 431715107, 9485195358137 Code(s): O99.820 - STREPTOCOCCUS B CARRIER STATE COMPLICATING Status: Acute Current Visit: Yes - Problem List Review Problem List Initiated/Reviewed/Updated: Yes - My Orders Last 24 Hours: My Active Orders 11/05/18 06:30 Penicillin G Potassium [Pfizerpen] 2.5 millunits Sodium Chloride 0.9% [Normal Saline] 100 ml IV Q4H 11/06/18 04:26 Patient Status Manage Transfer [TRANSFER] Routine - Assessment Assessment:: 28 y/o G1 now P1001 PPD#0 from at 37 2/7 wks - Plan Plan:: : * Routine cares * Encourage breast feeding * Monitor BP's closely * Discharge home in 1-2 days
[2018-11-06] MEDS ORDERED: Lanolin 100% Cream 7 GM Tube TOP PRN (04:35)
[2018-11-06] MEDS ORDERED: Acetaminophen 325 MG Tab PO PRN (04:35)
[2018-11-06] MEDS ORDERED: Witch Hazel Medicated Pads 40/Jar TOP PRN (04:35)
[2018-11-06] MEDS ORDERED: Benzocaine/Menthol 20%-0.5% Spray 56 GM Canister TOP PRN (04:35)
[2018-11-06] MEDS ORDERED: Docusate Sodium 100 MG Cap PO PRN (04:35)
[2018-11-06] MEDS: Ibuprofen 600 MG Tab PO PRN ×3 (04:37→21:17)
[2018-11-06] MEDS: Penicillin G Potassium 2.5 MILLUNITS in Sodium Chloride 0.9% 100 ML IV SCH (05:28)
--- NOTE | 2018-11-06 10:41 | PCM48HPAN ---
Post Anesthesia Note - EVALUATION WITHIN 48HRS OF ANESTHETIC Vital Signs in Normal Range: Yes Patient Participated in Evaluation: Yes Respiratory Function Stable: Yes Airway Patent: Yes Cardiovascular Function Stable: Yes Hydration Status Stable: Yes Pain Control Satisfactory: Yes Nausea and Vomiting Control Satisfactory: Yes Mental Status Recovered: Yes - COMMENTS/OBSERVATIONS Free Text/Narrative:: Patient states pain returned, warranted a rebolus, and then epidural worked well. Upon pushing, pain returned, patient educated that this is a normal experience at times to provide better ability to push more effectively.
[2018-11-07 03:18] VITALS: BP 112/68
[2018-11-07] MEDS: Ibuprofen 600 MG Tab PO PRN ×2 (03:19→10:57)
--- NOTE | 2018-11-07 07:17 | PCM.DCSUM1 ---
Discharge Summary - Discharge Data Discharge Date: 11/07/18 Discharge Disposition: Home, Self-Care 01 Condition: Good - Discharge Diagnosis/Problem(s) (1) 37 weeks gestation of SNOMED Code(s): 86577616 ICD Code: Z3A.37 - 37 WEEKS GESTATION OF Status: Acute Current Visit: Yes (2) Gestational hypertension SNOMED Code(s): 496479813 ICD Code: O13.9 - GESTATIONAL HTN W/O SIGNIFICANT PROTEINURIA, UNSP TRIMESTER Status: Acute Current Visit: Yes Qualifiers: Trimester: third trimester Qualified Code(s): O13.3 - Gestational [ -induced] hypertension without significant proteinuria, third trimester (3) GBS (group B Streptococcus carrier), +RV culture, currently SNOMED Code(s): 6095843635957, 369116982, 9378534656109 ICD Code: O99.820 - STREPTOCOCCUS B CARRIER STATE COMPLICATING Status: Acute Current Visit: Yes (4) Vaginal delivery SNOMED Code(s): 536585089 ICD Code: O80 - ENCOUNTER FOR FULL-TERM UNCOMPLICATED DELIVERY Status: Acute Current Visit: Yes - Patient Summary/Data Complications: None Consults: None Recommended Follow-up Testing/Procedures: Follow up in 1 week for BP check and in 3 weeks for check Hospital Course: 28 y/o presented at 37 0/7 wks for IOL for previously established diagnosis of gestational HTN. Induction done with Cytotec and galindo bulb. Then transitioned into AROM and pitocin. She made slow, but steady change to complete dilation. She underwent a vaginal delivery notable for a < 20 second shoulder dystocia. This was relieved wtih Dennisobert's alone. she did well however her daughter had increasing respiratory support requirement. Her daughter was transferred on PDP#1 and so patient was discharged at this time. - Patient Instructions Diet: Regular Diet as Tolerated Activity: As Tolerated Activity, Other: Pelvic Rest for 6 weeks Driving: May Drive Today Showering/Bathing: May Shower Showering/Bathing, Other: May Bathe Notify Provider of: Fever, Increased Pain, Swelling and Redness, Drainage, Nausea and/or Vomiting - Discharge Plan *PRESCRIPTION DRUG MONITORING PROGRAM REVIEWED*: Not Applicable *COPY OF PRESCRIPTION DRUG MONITORING REPORT IN PATIENT BRENT: Not Applicable Home Medications: Home Meds Pnv No.122/Iron/Folic Acid [ Multi Tablet] 1 each PO DAILY 10/20/18 [ History] Docusate Sodium [Colace] 100 mg PO BID PRN cap 11/07/18 [Rx] Ibuprofen [Motrin] 600 mg PO Q6H PRN tablet 11/07/18 [Rx] Patient Handouts: Breast Pumping Tips, Home Care Instructions for Mom Referrals: Patsy Donaldson MD [Primary Care Provider] - (1 week for BP check 3 weeks for check ) - Discharge Summary/Plan Comment DC Time >30 min.: No - Patient Data Vitals - Most Recent: Last Vital Signs Temp 36.4 C 11/07/18 03:13 Pulse 81 11/07/18 03:13 Resp 15 11/07/18 03:13 BP 112/68 11/07/18 03:13 Pulse Ox 98 11/07/18 03:13 Weight - Most Recent: 95.617 kg I&O - Last 24 hours: Intake & Output 11/06/18 11/07/18 11/07/18 22:59 06:59 14:59 Intake Total 180 Balance 180 Med Orders - Current: Current Medications Acetaminophen (Tylenol) 650 mg PO Q4H PRN PRN Reason: mild pain or fever Last Admin: 11/06/18 09:25 Dose: 650 mg Benzocaine/Menthol (Dermoplast Pain Relief [place]) 0 gm TOP ASDIRECTED PRN PRN Reason: Perineal Comfort Measure Last Admin: 11/06/18 08:14 Dose: 1 spray Docusate Sodium (Colace) 100 mg PO BID PRN PRN Reason: Constipation Last Admin: 11/06/18 13:11 Dose: 100 mg Emollient Ointment (Lansinoh Hpa) 0 gm TOP ASDIRECTED PRN PRN Reason: Sore Nipples Ibuprofen (Motrin) 600 mg PO Q6H PRN PRN Reason: Mild pain or fever Last Admin: 11/07/18 03:19 Dose: 600 mg Witch Oanh (Tucks) 1 pad TOP ASDIRECTED PRN PRN Reason: Perineal Comfort Measure Last Admin: 11/06/18 08:13 Dose: 1 pad Discontinued Medications Bupivacaine HCl (Sensorcaine-Mpf 0.25%) 20 ml .ROUTE .STK-MED ONE Stop: 11/05/18 22:01 Diphenhydramine HCl (Benadryl) 25 mg IVPUSH Q6H PRN PRN Reason: Itching Ephedrine Sulfate (Ephedrine Sulfate) 5 mg IVPUSH ASDIRECTED PRN PRN Reason: HYPOTENTSION Fentanyl (Sublimaze) Confirm Administered Dose 100 mcg .ROUTE .STK-MED ONE Stop: 11/05/18 01:30 Last Admin: 11/05/18 03:34 Dose: Not Given Fentanyl (Sublimaze) 100 mcg EPIDUR Q3H PRN PRN Reason: Pain Last Admin: 11/05/18 21:59 Dose: 100 mcg Fentanyl/Bupivacaine HCl (Brxrbqdv-Wwlsz-Ct 2 Mcg/Ml-0.125%) 100 ml EPIDUR ASDIRECTED PRN PRN Reason: Pain Last Admin: 11/06/18 00:53 Dose: 100 ml Lactated Ringer's (Ringers, Lactated) 1,000 mls @ 40 mls/hr IV ASDIRECTED MIHIR Last Admin: 11/06/18 05:22 Dose: 125 mls/hr Oxytocin/Lactated Ringer's (Pitocin In Lr 10 Units/1,000 Ml) 10 unit in 1,000 mls @ 12 mls/hr IV TITRATE MIHIR; Protocol Last Titration: 11/05/18 22:09 Dose: 5 munits/min, 30 mls/hr Oxytocin/Lactated Ringer's (Pitocin In Lr 10 Units/1,000 Ml) 10 unit in 1,000 mls @ 500 mls/hr IV .CONTINUOUS MIHIR Last Admin: 11/06/18 04:10 Dose: 500 mls/hr Penicillin G Potassium 5 (millunits/ Sodium Chloride) 100 mls @ 55 mls/hr IV ONETIME ONE Stop: 11/05/18 04:19 Last Admin: 11/05/18 02:38 Dose: 55 mls/hr Penicillin G Potassium 2.5 (millunits/ Sodium Chloride) 100 mls @ 55 mls/hr IV Q4H MIHIR Last Admin: 11/06/18 05:28 Dose: 55 mls/hr Misoprostol (Cytotec) Confirm Administered Dose 25 mcg .ROUTE .STK-MED ONE Stop: 11/04/18 19:35 Last Admin: 11/04/18 19:40 Dose: 25 mcg Misoprostol (Cytotec) 25 mcg VAG Q4H PRN PRN Reason: cervical ripening Misoprostol (Cytotec) 25 mcg PO Q4H PRN PRN Reason: CERVICAL RIPENING Nalbuphine HCl (Nubain) 10 mg IVPUSH Q2H PRN PRN Reason: pain Ondansetron HCl (Zofran) 4 mg IVPUSH Q4H PRN PRN Reason: Nausea/Vomiting Last Admin: 11/05/18 13:33 Dose: 4 mg Sodium Chloride (Saline Flush) 10 ml FLUSH ASDIRECTED PRN PRN Reason: Keep Vein Open
--- NOTE | 2018-11-07 07:17 | PCM.PNPP ---
- General Info Date of Service: 11/07/18 Functional Status: Reports: Pain Controlled, Tolerating Diet, Ambulating, Urinating - Review of Systems General: Reports: No Symptoms Pulmonary: Reports: No Symptoms Cardiovascular: Reports: No Symptoms Gastrointestinal: Reports: No Symptoms Genitourinary: Reports: No Symptoms Musculoskeletal: Reports: No Symptoms - Patient Data Vital Signs - Most Recent: Last Vital Signs Temp 36.4 C 11/07/18 03:13 Pulse 81 11/07/18 03:13 Resp 15 11/07/18 03:13 BP 112/68 11/07/18 03:13 Pulse Ox 98 11/07/18 03:13 Weight - Most Recent: 95.617 kg I&O - Last 24 Hours: Intake & Output 11/06/18 11/07/18 11/07/18 22:59 06:59 14:59 Intake Total 180 Balance 180 Med Orders - Current: Current Medications Acetaminophen (Tylenol) 650 mg PO Q4H PRN PRN Reason: mild pain or fever Last Admin: 11/06/18 09:25 Dose: 650 mg Benzocaine/Menthol (Dermoplast Pain Relief [place]) 0 gm TOP ASDIRECTED PRN PRN Reason: Perineal Comfort Measure Last Admin: 11/06/18 08:14 Dose: 1 spray Docusate Sodium (Colace) 100 mg PO BID PRN PRN Reason: Constipation Last Admin: 11/06/18 13:11 Dose: 100 mg Emollient Ointment (Lansinoh Hpa) 0 gm TOP ASDIRECTED PRN PRN Reason: Sore Nipples Ibuprofen (Motrin) 600 mg PO Q6H PRN PRN Reason: Mild pain or fever Last Admin: 11/07/18 03:19 Dose: 600 mg Witch Oanh (Tucks) 1 pad TOP ASDIRECTED PRN PRN Reason: Perineal Comfort Measure Last Admin: 11/06/18 08:13 Dose: 1 pad Discontinued Medications Bupivacaine HCl (Sensorcaine-Mpf 0.25%) 20 ml .ROUTE .STK-MED ONE Stop: 11/05/18 22:01 Diphenhydramine HCl (Benadryl) 25 mg IVPUSH Q6H PRN PRN Reason: Itching Ephedrine Sulfate (Ephedrine Sulfate) 5 mg IVPUSH ASDIRECTED PRN PRN Reason: HYPOTENTSION Fentanyl (Sublimaze) Confirm Administered Dose 100 mcg .ROUTE .STK-MED ONE Stop: 11/05/18 01:30 Last Admin: 11/05/18 03:34 Dose: Not Given Fentanyl (Sublimaze) 100 mcg EPIDUR Q3H PRN PRN Reason: Pain Last Admin: 11/05/18 21:59 Dose: 100 mcg Fentanyl/Bupivacaine HCl (Ctsrcpbw-Aaene-Vi 2 Mcg/Ml-0.125%) 100 ml EPIDUR ASDIRECTED PRN PRN Reason: Pain Last Admin: 11/06/18 00:53 Dose: 100 ml Lactated Ringer's (Ringers, Lactated) 1,000 mls @ 40 mls/hr IV ASDIRECTED MIHIR Last Admin: 11/06/18 05:22 Dose: 125 mls/hr Oxytocin/Lactated Ringer's (Pitocin In Lr 10 Units/1,000 Ml) 10 unit in 1,000 mls @ 12 mls/hr IV TITRATE MIHIR; Protocol Last Titration: 11/05/18 22:09 Dose: 5 munits/min, 30 mls/hr Oxytocin/Lactated Ringer's (Pitocin In Lr 10 Units/1,000 Ml) 10 unit in 1,000 mls @ 500 mls/hr IV .CONTINUOUS MIHIR Last Admin: 11/06/18 04:10 Dose: 500 mls/hr Penicillin G Potassium 5 (millunits/ Sodium Chloride) 100 mls @ 55 mls/hr IV ONETIME ONE Stop: 11/05/18 04:19 Last Admin: 11/05/18 02:38 Dose: 55 mls/hr Penicillin G Potassium 2.5 (millunits/ Sodium Chloride) 100 mls @ 55 mls/hr IV Q4H MIHIR Last Admin: 11/06/18 05:28 Dose: 55 mls/hr Misoprostol (Cytotec) Confirm Administered Dose 25 mcg .ROUTE .STK-MED ONE Stop: 11/04/18 19:35 Last Admin: 11/04/18 19:40 Dose: 25 mcg Misoprostol (Cytotec) 25 mcg VAG Q4H PRN PRN Reason: cervical ripening Misoprostol (Cytotec) 25 mcg PO Q4H PRN PRN Reason: CERVICAL RIPENING Nalbuphine HCl (Nubain) 10 mg IVPUSH Q2H PRN PRN Reason: pain Ondansetron HCl (Zofran) 4 mg IVPUSH Q4H PRN PRN Reason: Nausea/Vomiting Last Admin: 11/05/18 13:33 Dose: 4 mg Sodium Chloride (Saline Flush) 10 ml FLUSH ASDIRECTED PRN PRN Reason: Keep Vein Open - Interaction Infant Disposition, : [place] to Nursery Interaction: Unable to Hold Infant at this Time Feeding: Other (see below) (pumping ) Support Person: - Recovery Exam Fundal Tone: Firm Fundal Level: 1 Fingerbreadths Below Umbilicus Fundal Placement: Midline Lochia Amount: Small Lochia Color: Rubra/Red Perineum Description: Other (see below) Other Perinuem Description: 2nd degree with repair Episiotomy/Laceration: Approximated Bladder Status: Voiding Urinary Elimination: Voided - Exam General: Alert, Oriented, Cooperative GI/Abdominal Exam: Soft, Non-Tender Extremities: Pedal Edema - Problem List & Annotations (1) 37 weeks gestation of SNOMED Code(s): 44478510 Code(s): Z3A.37 - 37 WEEKS GESTATION OF Status: Acute Current Visit: Yes (2) Gestational hypertension SNOMED Code(s): 516063551 Code(s): O13.9 - GESTATIONAL HTN W/O SIGNIFICANT PROTEINURIA, UNSP TRIMESTER Status: Acute Current Visit: Yes Qualifiers: Trimester: third trimester Qualified Code(s): O13.3 - Gestational [ -induced] hypertension without significant proteinuria, third trimester (3) GBS (group B Streptococcus carrier), +RV culture, currently SNOMED Code(s): 6700813295685, 444371928, 3996979595577 Code(s): O99.820 - STREPTOCOCCUS B CARRIER STATE COMPLICATING Status: Acute Current Visit: Yes (4) Vaginal delivery SNOMED Code(s): 723436048 Code(s): O80 - ENCOUNTER FOR FULL-TERM UNCOMPLICATED DELIVERY Status: Acute Current Visit: Yes - Problem List Review Problem List Initiated/Reviewed/Updated: Yes - My Orders Last 24 Hours: My Active Orders 11/07/18 04:35 Heat Therapy [OM.PC] PRN 11/07/18 07:16 Ready for Discharge [RC] PER UNIT ROUTINE 05/10/19 Breakfast Regular Diet [DIET] - Assessment Assessment:: 28 y/o G1 now P1001 PPD#1 from at 37 2/7 wks - Plan Plan:: : * Patient herself doing very well after delivery. Unfortunately her daughter has required further respiratory support and will need to be transferred to [place] today. Will discharge Pamela with plans to do a BP check in 1 week and routine check in 3 weeks. Does feel tearful with this transfer, but has great family support
== END 2018-11-07 12:00 | disposition home or self-care (01) | DRG 560 ==
LOC: JD.OB 03:59 → OBSVTOIN 11-06 03:59 → JD.OB 11-06 03:59
PROVIDERS: ADMIT Obstetrics & Gynecology; ATTEND Obstetrics & Gynecology
PROC: 10E0XZZ Delivery of Products of Conception, External Approach (ICD-10-PCS; principal; 2018-11-06)
PROC: 0KQM0ZZ Repair Perineum Muscle, Open Approach (ICD-10-PCS; 2018-11-06)
PROC: 3E0P7VZ Introduction of Hormone into Female Reproductive, Via Natural or Artificial Opening (ICD-10-PCS; 2018-11-06)
PROC: 3E033VJ Introduction of Other Hormone into Peripheral Vein, Percutaneous Approach (ICD-10-PCS; 2018-11-06)
PROC: 10907ZC Drainage of Amniotic Fluid, Therapeutic from Products of Conception, Via Natural or Artificial Opening (ICD-10-PCS; 2018-11-06)
PROC: 10H07YZ Insertion of Other Device into Products of Conception, Via Natural or Artificial Opening (ICD-10-PCS; 2018-11-06)
PROC: 4A1H7CZ Monitoring of Products of Conception, Cardiac Rate, Via Natural or Artificial Opening (ICD-10-PCS; 2018-11-06)
DX: O13.4 Gestational [pregnancy-induced] hypertension without significant proteinuria, complicating childbirth (principal); O76 Abnormality in fetal heart rate and rhythm complicating labor and delivery; O99.824 Streptococcus B carrier state complicating childbirth; O66.0 Obstructed labor due to shoulder dystocia; O70.1 Second degree perineal laceration during delivery; Z3A.37 37 weeks gestation of pregnancy; Z37.0 Single live birth
CPT/HCPCS: 36415; 51701; 51702; 59025; 59409; 82565; 82570; 84156; 84450; 84460; 85027; 86592; 86850; 86900; 86901; A9270-GY; J2405; J2540; J2590; J3010; J3490; J7030; J7120

== ENCOUNTER 2023-08-04 03:41 | Inpatient (IN) | payer OTHER ==
[2023-08-04 05:20] LABS: CREATININE,URINE RAND 147.6 mg/dL (30.0-125.0); PROTEIN CREATININE RATIO,URINE 237.8 mg/g (0-149); PROTEIN,URINE RANDOM 35.1 mg/dL (0.0-11.8)
[2023-08-04 05:21] LABS: CREATININE 0.7 mg/dL (0.55-1.02); EST CRCL DRUG DOSING (CG) 116.39 mL/min; URIC ACID 4.7 mg/dL (2.6-6.0)
[2023-08-04 05:23] LABS: BASOPHILS PERCENT AUTO 0.2 % (0.0-1.0); EOSINOPHILS ABSOLUTE AUTO 0.2 K/mm3 (0.0-0.4); HEMATOCRIT 30.2 % (37.0-47.0); HEMOGLOBIN 10.5 gm/dl (12.0-16.0); IMMATURE GRAN ABSOLUTE AUTO 0.12 K/mm3 (0.00-0.05); IMMATURE GRAN PERCENT AUTO 1.2 % (0.0-0.4); LYMPHOCYTES ABSOLUTE AUTO 2.7 K/mm3 (1.0-4.8); MEAN CORPUSCULAR HEMOGLOBIN 29.6 pg (28.0-32.0); MEAN CORPUSCULAR HGB CONC 34.8 g/dl (32.0-36.0); MEAN CORPUSCULAR VOLUME 85.1 fl (83.0-99.0); MEAN PLATELET VOLUME 12.9 fl (9.4-12.3); MONOCYTES ABSOLUTE AUTO 0.6 K/mm3 (0.0-0.8); MONOCYTES PERCENT AUTO 6.3 % (0.0-8.0); NEUTROPHILS ABSOLUTE AUTO 6.2 K/mm3 (1.8-7.7); NEUTROPHILS PERCENT AUTO 63.3 % (41.0-71.0); PLATELET COUNT,PLT 158 K/mm3 (150-400); RED BLOOD CELL COUNT 3.55 M/mm3 (4.10-5.30); WHITE BLOOD CELL COUNT,WBC 9.81 K/mm3 (3.9-11.3)
[2023-08-04] MEDS ORDERED: Sodium Chloride 0.9% 10 ML Syringe FLUSH PRN ×2 (05:54→09:20)
[2023-08-04] MEDS: Lactated Ringers 1,000 ML IV SCH (07:07)
[2023-08-04] MEDS: Citric Acid/Sodium Citrate Solution 30 ML Cup PO ONE (07:09)
[2023-08-04] MEDS: Metoclopramide 10 MG/2 ML SDV IVPUSH ONE (07:10)
[2023-08-04] MEDS ORDERED: Oxytocin 10 Units/1 ML SDV ONE (07:34)
[2023-08-04] MEDS ORDERED: fentaNYL 100 MCG/2 ML SDV ONE (07:34)
[2023-08-04] MEDS ORDERED: Ondansetron 4 MG/2 ML SDV ONE (07:34)
[2023-08-04] MEDS ORDERED: Morphine PF 10 MG/10 ML SDV ONE (07:35)
[2023-08-04] MEDS ORDERED: ceFAZolin 2 GM Vial ONE (07:37)
[2023-08-04] MEDS ORDERED: dexmedeTOMIDine HCl 200 MCG/2 ML SDV ONE (07:59)
[2023-08-04] MEDS ORDERED: Lactated Ringers 1,000 ML ONE (08:18)
[2023-08-04] MEDS ORDERED: diphenhydrAMINE 50 MG/ML SDV IVPUSH PRN (08:25)
[2023-08-04] MEDS ORDERED: fentaNYL 100 MCG/2 ML SDV IVPUSH PRN (08:25)
[2023-08-04] MEDS ORDERED: Ondansetron 4 MG/2 ML SDV IVPUSH PRN (08:25)
[2023-08-04] MEDS ORDERED: Ketorolac 30 MG/ML SDV ONE (08:46)
[2023-08-04] MEDS ORDERED: ePHEDrine 50 MG/ML SDV IVPUSH PRN (09:20)
[2023-08-04] MEDS ORDERED: Naloxone 0.4 MG/ML SDV IVPUSH PRN (09:20)
[2023-08-04] MEDS ORDERED: oxyCODONE 5 MG Tab PO PRN (09:20)
[2023-08-04] MEDS: Acetaminophen 325 MG Tab PO SCH ×2 (11:15→18:33)
[2023-08-04] MEDS: Sertraline 50 MG Tab PO SCH (11:16)
[2023-08-04] MEDS: Ondansetron 4 MG/2 ML SDV IVPUSH PRN (12:17)
[2023-08-04] MEDS: Dextrose 5%-Lactated Ringers 1,000 ML IV SCH (13:32)
[2023-08-04] MEDS: Ibuprofen 600 MG Tab PO SCH (16:06)
[2023-08-04] MEDS: Enoxaparin 40 MG/0.4 ML Syringe SUBCUT ONE (21:37)
[2023-08-04] MEDS: Sennosides 8.6 MG Tab PO SCH (21:38)
[2023-08-04] MEDS: diphenhydrAMINE 50 MG/ML SDV IVPUSH PRN (21:40)
[2023-08-04] MEDS: ceFAZolin 2 GM in Sodium Chloride 0.9% 50 ML IV ONE (23:14)
[2023-08-05 06:59] LABS: HEMOGLOBIN 8.4 gm/dl (12.0-16.0); MEAN CORPUSCULAR HEMOGLOBIN 29.5 pg (28.0-32.0); MEAN CORPUSCULAR HGB CONC 33.6 g/dl (32.0-36.0); MEAN CORPUSCULAR VOLUME 87.7 fl (83.0-99.0); MEAN PLATELET VOLUME 12.6 fl (9.4-12.3); PLATELET COUNT,PLT 145 K/mm3 (150-400); RED BLOOD CELL COUNT 2.85 M/mm3 (4.10-5.30); WHITE BLOOD CELL COUNT,WBC 10.41 K/mm3 (3.9-11.3)
[2023-08-05] MEDS: Ferrous Sulfate 324 MG Tab.EC PO SCH (12:29)
[2023-08-05] MEDS: Ibuprofen 600 MG Tab PO SCH (20:19)
[2023-08-05] MEDS: Acetaminophen 325 MG Tab PO SCH (20:19)
[2023-08-05] MEDS: Enoxaparin 40 MG/0.4 ML Syringe SUBCUT SCH (20:20)
[2023-08-05] MEDS: Sodium Chloride 0.9% 10 ML Syringe FLUSH SCH (21:43)
[2023-08-06 13:30] VITALS: BP 145/95; PULSE 82
== END 2023-08-06 11:50 | disposition home or self-care (01) | DRG 787 ==
LOC: JD.OB 03:41 → JD.OBCHECK 03:41 → JD.OB 05:54
PROVIDERS: ADMIT Obstetrics & Gynecology; ATTEND Obstetrics & Gynecology
PROC: 10D00Z1 Extraction of Products of Conception, Low, Open Approach (ICD-10-PCS; principal; 2023-08-04 08:00)
DX: O13.4 Gestational [pregnancy-induced] hypertension without significant proteinuria, complicating childbirth (principal); D62 Acute posthemorrhagic anemia; D68.52 Prothrombin gene mutation; O99.12 Other diseases of the blood and blood-forming organs and certain disorders involving the immune mechanism complicating childbirth; O66.0 Obstructed labor due to shoulder dystocia; Z37.0 Single live birth; O90.81 Anemia of the puerperium; Z3A.37 37 weeks gestation of pregnancy
CPT/HCPCS: 01961; 36415; 59025; 82565; 82570; 83615; 84156; 84450; 84460; 84520; 84550; 85025; 85027; 86592; 86850; 86900; 86901; 94762; A9270-GY; J0690; J1200; J1650; J1885; J2274; J2405; J2590; J2765; J3010; J3490; J7120; J7121

== ENCOUNTER 2025-01-02 14:42 | Emergency (ER) | payer OTHER ==
[2025-01-02] MEDS ORDERED: Sodium Chloride 0.9% 10 ML Syringe FLUSH PRN (14:56)
[2025-01-02 14:59] VITALS: PULSE 87
[2025-01-02] MEDS ORDERED: Naloxone 0.4 MG/ML SDV IVPUSH PRN (15:00)
[2025-01-02 15:32] LABS: BASOPHILS ABSOLUTE AUTO 0.1 K/mm3 (0.0-0.2); BASOPHILS PERCENT AUTO 0.5 % (0.0-1.0); EOSINOPHILS ABSOLUTE AUTO 0.4 K/mm3 (0.0-0.4); EOSINOPHILS PERCENT AUTO 4.5 % (0.0-6.0); IMMATURE GRAN ABSOLUTE AUTO 0.02 K/mm3 (0.00-0.05); IMMATURE GRAN PERCENT AUTO 0.2 % (0.0-0.4); LYMPHOCYTES ABSOLUTE AUTO 3.0 K/mm3 (1.0-4.8); LYMPHOCYTES PERCENT AUTO 33.0 % (24.0-44.0); MEAN PLATELET VOLUME 12.5 fl (9.4-12.3); MONOCYTES ABSOLUTE AUTO 0.7 K/mm3 (0.0-0.8); MONOCYTES PERCENT AUTO 7.4 % (0.0-8.0); NEUTROPHILS ABSOLUTE AUTO 5.0 K/mm3 (1.8-7.7); NEUTROPHILS PERCENT AUTO 54.4 % (41.0-71.0); NRBC ABSOLUTE 0.00 (0.00-0.02); NRBC PERCENT 0.0 % (0.0-0.2); PLATELET COUNT,PLT 229 K/mm3 (150-400); RED BLOOD CELL COUNT 4.55 M/mm3 (4.10-5.30); WHITE BLOOD CELL COUNT,WBC 9.19 K/mm3 (3.9-11.3)
[2025-01-02] MEDS: Acetaminophen/oxyCODONE 325-5 MG Tab PO ONE (16:09)
[2025-01-02] MEDS: Ondansetron 4 MG/2 ML SDV IVPUSH ONE (16:10)
[2025-01-02 16:29] LABS: A/G RATIO 1.0 (1-2); ALANINE AMINOTRANSFERASE,ALT 31.0 U/L (14-59); ASPARTATE AMNIOTRANSFERASE,AST 20.0 U/L (15-37); BILIRUBIN TOTAL 0.4 mg/dL (0.2-1.0); BLOOD UREA NITROGEN,BUN 17.0 mg/dL (7-18); CARBON DIOXIDE,CO2 26.0 mEq/L (21-32); CHLORIDE,CL 102.0 mEq/L (98-107); CREATININE 0.9 mg/dL (0.55-1.02); EST CRCL DRUG DOSING (CG) 86.46 mL/min; ESTIMATED GFR 87.0 mL/min (>60); GLUCOSE RANDOM 98.0 mg/dL (70-99); POTASSIUM,K 4.1 mEq/L (3.5-5.1); PROTEIN TOTAL,TP 8.3 g/dl (6.4-8.2); SODIUM,NA 140.0 mEq/L (136-145)
[2025-01-02 16:33] LABS: ETHANOL BLOOD MEDICAL 0.0 gm% (0.00)
[2025-01-02 19:30] VITALS: BP 122/80
== END 2025-01-02 18:25 | disposition home or self-care (01) ==
LOC: JD.ED 14:42
DX: S01.01XA Laceration without foreign body of scalp, initial encounter (principal); Z79.899 Other long term (current) drug therapy; Z90.49 Acquired absence of other specified parts of digestive tract; W22.8XXA Striking against or struck by other objects, initial encounter; Y93.89 Activity, other specified
CPT/HCPCS: 12001; 36415; 70450; 72125; 80053; 80307; 84703; 85025; 99285; A9270